=== PATIENT | female | born 1945 | race Caucasian/White ===

== ENCOUNTER → 2016-08-23 | Outpatient (CLI) | payer OTHER, MEDICARE | LOC: FIMAGING 10:34 | PROVIDERS: ATTEND Physician Assistant | DX: J90 Pleural effusion, not elsewhere classified (principal); R05 Cough; R50.9 Fever, unspecified; J06.9 Acute upper respiratory infection, unspecified; Z86.711 Personal history of pulmonary embolism ==

== ENCOUNTER → 2016-08-23 | Outpatient (CLI) | payer OTHER, MEDICARE ==
[~2016-08-23] MED LIST: IOPAMIDOL (ISOVUE 370) 100 ML BTL IV ONE
[2016-08-23 12:20] LABS: CREATININE 0.7 mg/dL (0.6-1.0); GLOMERULAR FILTRATION RATE > 60
== END ==
LOC: FIMAGING 11:13
PROVIDERS: ATTEND Physician Assistant
DX: Z86.711 Personal history of pulmonary embolism (principal); J06.9 Acute upper respiratory infection, unspecified; R05 Cough; R50.9 Fever, unspecified; R06.02 Shortness of breath; K76.89 Other specified diseases of liver
CPT/HCPCS: 71275; Q9967